=== PATIENT | male | born 1975 | race Caucasian/White ===

== ENCOUNTER 2017-05-04 15:11 | Observation (INO) | payer SELFPAY ==
[~2017-05-04] VITALS: Ht 188 cm; Wt 126.7 kg
[2017-05-04 15:54] LABS: HEMATOCRIT 40.1 % (38.0-50.0); MCH 30.9 PG (29.0-34.0); MCHC 33.4 G/DL (30.0-36.0); MCV 92.4 FL (86-99); MEAN PLAT.VOLUME 10.4 uM^3 (9.0-12.4); PLATELET COUNT 149 K/uL (156-360); RBC DIS.WIDTH-CV 12.3 % (11.8-14.6); RBC DIS.WIDTH-SD 42.3 % (39-53); RED BLOOD COUNT 4.34 M/uL (4.00-5.50); WHITE BLOOD COUNT 7.8 K/uL (4.1-10.2)
[2017-05-04 16:04] LABS: CHLORIDE 112 mEq/L (99-109); POTASSIUM 3.9 mEq/L (3.7-5.4); SODIUM 143 mEq/L (136-147)
[2017-05-04 16:06] LABS: GLUCOSE 103 mg/dL (70-99)
[2017-05-04 16:07] LABS: ANION GAP 9 MEQ/L (2-14)
[2017-05-04 16:10] LABS: GFR ESTIMATE (CALCULATED) > 59 mL/min/; UREA NITROGEN (BUN) 21 mg/dL (9-23)
[2017-05-04 22:54] VITALS: BP 121/69
[2017-05-05 03:15] VITALS: BP 111/56
[2017-05-05 08:00] VITALS: BP 121/66
[2017-05-05 12:15] VITALS: BP 130/76
[2017-05-05] MEDS ORDERED: PERCOCET 5/31 TABLET PO (13:28)
== END 2017-05-05 14:32 | disposition home or self-care (01) ==
LOC: EME 15:11 → EDOF 16:51 → 2EAST 16:51 → EDOF 16:51 → 2EAST 19:00 → EDOF 21:34 → 2EAST 22:46
PROVIDERS: Emergency Medicine
PROC: 0KQQ0ZZ Repair Right Upper Leg Muscle, Open Approach (ICD-10-PCS; principal; 2017-05-04)
DX: S71.111A Laceration without foreign body, right thigh, initial encounter (principal); S76.821A Laceration of other specified muscles, fascia and tendons at thigh level, right thigh, initial encounter; W29.3XXA Contact with powered garden and outdoor hand tools and machinery, initial encounter
CPT/HCPCS: 73552; 80048; 85027; 93005; 99281; 99285; G0378; J0330; J1170; J1885; J2175; J2250; J2405; J2543; J3010; J3480; J7030; J7050